=== PATIENT | female | born 1935 | race Caucasian/White ===

== ENCOUNTER 2017-04-19 11:47 | Emergency (ER) | payer OTHER ==
[~2017-04-19] VITALS: Ht 160 cm; Wt 57.7 kg
[2017-04-19 11:55] VITALS: BP 149/79; PULSE 79; RESP 16; O2SAT 100
--- NOTE | 2017-04-19 12:06 | ED.REPORT ---
HPI-Trauma Minor / Fall Date of Service Apr 19, 2017 ED Provider: Thanh Mina MD A 81 year old female with a history of arthritis presents to the ED due to a fall. The pt was walking quickly through her home this morning when she tripped over a file box and fell. She hit her right frontal head on the edge of a cupboard, resulting in a laceration with significant bleeding and a headache. She denies vomiting, loss of consciousness, nausea, confusion or other trauma. The pt is not on blood thinners. Nursing Notes Stated Complaint: FELL AT HOME HEAD WOUND Chief Complaint: Multiple Trauma/Fall Nursing Notes Reviewed: Yes Allergies: Coded Allergies: No Known Allergies (Unverified , 04/19/17) General Time Seen by MD: 12:06 Chief Complaint Fall Hx Obtained From: Patient, Spouse Arrived By: Walk-in Onset Occurred: 16 - 30 minutes ago Symptom Duration: Since onset Recent Healthcare: No recent hospitalization Similar Sx Previous: No Risk Factors Risk Notes: Pt declines head CT. Risks discussed as documented below. Head CT Imaging Patient Presents WITHOUT: Loss of Conciousness, PostTraumatic Amnesia, PROCEED W/ CONSIDERATIONS Consider Non Contrast CT for: >/= 60 yo Age WITHOUT LOCNo S/S Basal Skull Fx, No Vomiting RF Statements: Risk factors reviewed Past Medical History Past Medical History Arthritis Past Surgical History Hip replacement Smoking History Unknown if Ever Smoker Social History Other Social History: Good social support, Ambulatory Status Independent Review of Systems Review of Systems Note: laceration Respiratory: Denies: Non-productive cough, Shortness of breath Musculoskeletal: Denies: Back pain, Neck pain Skin: Denies Rash Neurologic: Reports: Headache, Denies: Change LOC, Confusion Complete sys rev & neg: except as marked. Cardiovascular: Denies: Chest pain GI: Denies: Abdominal pain, Vomiting Physical Exam Initial Vital Signs Vital Signs (First) Date Time Temp Pulse Resp B/P Pulse Ox O2 Delivery O2 Flow Rate FiO2 04/19/17 11:55 36.7 79 16 149/79 100 Room Air Initial VS: Reviewed General/Constitutional: Awake, Alert Neck: Atraumatic, Supple, Full range of motion Head / Eyes: Normocephalic, PERRL, EOMI 4 cm laceration on the right forehead actively bleeding surrounding right frontal hematoma ENT: Atraumatic, Airway patent, Mucous membranes moist Respiratory / Chest: Atraumatic, Breath sounds NL, Breath sounds = bilat, No respiratory distress Cardiovascular: Heart rate NL, Regular rhythm, Heart sounds NL Abdomen: Atraumatic, Soft, Non-tender Back: Atraumatic, Full range of motion Upper Extremity / MS: Atraumatic, Full range of motion Lower Extremity / Pelvis / MS: Full range of motion, Neurologic intact, Vascular intact two small superficial abrasions on right knee Skin: Color NL, No rash, Warm, Dry Neurologic: Oriented X3, Speech NL, No motor deficits, No sensory deficits, CN II - XII intact Psychiatric: Affect NL, Mood NL Procedures Laceration Management Laceration Management: arterial bleed pressure applied immediately followed by ice hematoma resolved with ice Time: 12:10 Procedure Performed by: [facility] health pract Consent / Setup / Site Prep: Informed consent provided, Consent from patient , Time-out performed, Hand hygiene observed, Stand sterile technique Location of Wound: right forehead, directly inside hairline Wound Length: 4 cm Local Anesthesia: Lidocaine 1% (epi not available) Digital Block: No Wound Preparation: Normal saline Debridement: None Irrigation: Copious Foreign Body Explore / Removal: Explored for foreign body Repair Skin: ___ O (5), Nylon # Sutures - Skin: 6 Suture Technique: Simple Post-Procedure / Complications: Antibiotic oint applied, Dressing applied, No complications, Condition improved, Tolerated procedure well, Patient stable Re-Eval/Medical Decision Med Decision/Clinical Course 81-year-old female status post mechanical ground-level fall onto right forehead. Suffered a 4 cm laceration right forehead with arterial bleeding on arrival. This resolved with suturing. Up-to-date tenderness. Patient declined CT scan understand the risks and possibility of though she had no symptoms for intracranial bleed. She will follow-up 5 days for suture removal. Return precautions given. Re-Evaluation/Progress : Time of Eval: 12:42 Patient Status: Condition improved Re-Evaluation/Progress Note: Pt rechecked, who is feeling well. Discussed option for head CT with pt and pt's . As her age is the only indication for CT and she is otherwise asymptomatic, the pt is declining CT at this time. She understands the risk of head bleed and risk of as a result. Pt is mentating well and does have the capacity to make this decision. The diagnosis and plan for discharge are discussed. The pt understands and agrees with the plan. All questions are addressed at this time. Counseled Regarding: Diagnosis, Need for follow-up, When/why to return to ED Discharge & Departure Impression: Primary Impression: Facial laceration Encounter type: initial encounter Qualified Code: S01.81XA - Laceration without foreign body of other part of head, initial encounter Additional Impression: Head trauma Encounter type: initial encounter Qualified Code: S09.90XA - Unspecified injury of head, initial encounter Disposition: Home Discharge Condition All VS Reviewed: Yes Condition: Stable Patient Instructions: Facial Laceration (ED) Additional Instructions: Thank you for entrusting us with your care. Keep the wound clean and dry. The stitches can be removed in 5 days. Have this done either with your primary care physician or in the emergency department. You have requested discharge without having a CT scan of your head to rule out a head bleed. You understand the risks of this decision and agree to return to the emergency department if you develop any concerning signs or symptoms. Call your primary care physician to arrange a follow up appointment in the next several days. Return to the emergency department if you develop any new or worsening symptoms such as redness, swelling, discharge, increasing pain, fever , lightheadedness, dizziness, confusion or syncope. Referrals: OTHER,PHYSICIAN Scribe Attestation Portions of this note were transcribed by Henry Tao. I, Dr. Mina personally performed the history, physical exam and medical decision-making; I reviewed and confirmed the accuracy of the information in the transcribed note. Thanh Mina MD Apr 19, 2017 12:06 HENRY TAO Apr 19, 2017 12:21
[2017-04-19 13:56] VITALS: BP 110/64; PULSE 73; RESP 12; O2SAT 97
== END 2017-04-19 13:15 | disposition home or self-care (01) ==
LOC: SED 11:47
DX: S01.81XA Laceration without foreign body of other part of head, initial encounter (principal); S80.211A Abrasion, right knee, initial encounter; W01.198A Fall on same level from slipping, tripping and stumbling with subsequent striking against other object, initial encounter; Y93.01 Activity, walking, marching and hiking; Y99.8 Other external cause status; Y92.008 Other place in unspecified non-institutional (private) residence as the place of occurrence of the external cause

== ENCOUNTER 2017-04-26 10:34 | Emergency (ER) | payer MEDICARE, OTHER ==
[~2017-04-26] VITALS: Ht 160 cm; Wt 57.7 kg
[2017-04-26 10:36] VITALS: BP 153/61; PULSE 81; RESP 16; O2SAT 97
--- NOTE | 2017-04-26 11:00 | ED.REPORT ---
HPI-General Illness Date of Service Apr 26, 2017 ED Provider: Thanh Mina MD The pt is a 81 y/o female presenting to the ED for a suture removal. The pt was seen here a week ago due to a 4 cm laceration to her R forehead w/ arterial bleeding. 6 sutures were placed at the time. She denies any headaches, vomiting , confusion, dizziness, double vision, or ringing in the ears. Nursing Notes Stated Complaint: STITCHES REMOVAL Chief Complaint: Suture Removal Nursing Notes Reviewed: Yes Allergies: Coded Allergies: No Known Allergies (Unverified , 04/26/17) General Time Seen by MD: 10:48 Chief Complaint Other (Suture removal) Hx Obtained From: Patient, Spouse Arrived By: Walk-in Sudden in Onset?: Yes Onset Occurred: 1 week ago Symptom Duration: Since onset Recent Healthcare: No recent hospitalization, Recent doctor visit Similar Sx Previous: Yes Past Medical History Past Medical History Arthritis Past Surgical History Hip replacement Smoking History Unknown if Ever Smoker Social History Other Social History: Good social support, Ambulatory Status Independent Review of Systems +4 cm laceration to R forehead w/ stitches in place; Denies ringing in ears; Full Review of Systems Eyes: Denies: Diplopia GI: Denies: Vomiting Neurologic: Denies: Confusion, Dizziness, Headache Complete sys rev & neg: except as marked. Physical Exam Vital Signs Vital Signs Date Time Temp Pulse Resp B/P Pulse Ox O2 Delivery O2 Flow Rate FiO2 04/26/17 10:36 36.8 81 16 153/61 97 Room Air Initial VS: Reviewed General/Constitutional: Well-developed, Well-nourished ENT: Mucous membranes moist, Conjunctiva normal, No scleral icterus Neck: Supple, Non-tender, Full range of motion Respiratory: Breath sounds normal, Clear to auscultation, No respiratory distress Cardiovascular: Regular rate & rhythm, Heart sounds normal, Intact distal pulses Extremities: Vascular intact, Neuro intact, No swelling, No tenderness Neurologic: Alert, Oriented, Nonfocal Psychiatric: Mood/affect normal, Behavior normal, Normal thought content Head / Eyes: Normocephalic 4 cm laceration to R forehead w/ stitches placed; Bilateral periorbital hematomas; Procedures Suture Removal Time: 11:42 Procedure Performed by: ED physician Wound Condition: Good healing, No sign of infection, Tendon function normal Number Removed: Removed sutures, 6 Re-Eval/Medical Decision Med Decision/Clinical Course 81-year-old female presenting for suture removal 5 days status post facial laceration. Wound is healing well. No sign symptoms of infection. I removed the sutures as above. Discharged home with return precautions. Source of Hx: Old records Time of Eval: 11:42 Re-Evaluation/Progress Note: Pt rechecked. Removed sutures. F/U instructions and RTER warnings given. All questions addressed. Counseled Regarding: Diagnosis, Need for follow-up, When/why to return to ED Discharge & Departure Primary Impression: Visit for suture removal Disposition: Home Discharge Condition All VS Reviewed: Yes Condition: Stable Additional Instructions: Thank you for entrusting us with your care today. Your wound is healing very well. It may bruise but that should go away after a few weeks. Make sure to keep it clean with soap and water. Please return to the emergency department if you notice any signs of an infection such as: increased redness, swelling, discharge, pus, or fever. You should also return to the emergency department if you develop a severe headache , vomiting, confusion as they could be signs of an internal bleed. I hope your wound heals soon. Referrals: NOPCP (PCP) Filomena Blanc MD Scribe Attestation Thank you for entrusting us with your care today. Your wound is healing very well. It may bruise but that should go away after a few weeks. Make sure to keep it clean with soap and water. Please return to the emergency department if you notice any signs of an infection such as: increased redness, swelling, discharge, pus, or fever. You should also return to the emergency department if you develop a severe headache , vomiting, confusion as they could be signs of an internal bleed. I hope your wound heals quickly. copies to: Filomena Blanc MD, Ben M MD Apr 26, 2017 11:00 Cholo Cronin Apr 26, 2017 11:03
== END 2017-04-26 12:03 | disposition home or self-care (01) ==
LOC: SED 10:34
DX: Z48.02 Encounter for removal of sutures (principal)